=== PATIENT | male | born 1980 | race Caucasian/White ===

== ENCOUNTER 2022-09-16 20:47 | Inpatient (IN) | payer BC, OTHER ==
[2022-09-16] MEDS ORDERED: LORazepam 2 MG/ML INJ IV STA (21:52)
[2022-09-16] MEDS ORDERED: chlordiazePOXIDE 25 MG CAP PO PRN ×2 (21:52)
[2022-09-16] MEDS ORDERED: SODIUM CHLORIDE 0.9% 1,000 ML IV ONE (21:54)
[2022-09-16] MEDS ORDERED: ONDANSETRON 4 MG/2 ML VIAL IVP STA (21:55)
[2022-09-16 22:33] LABS: Basophils % (A) 1 %; Eosinophils % (A) 1 %; HCT 37.2 % (39.0-53.0); HGB 12.7 gm/dL (13.0-17.5); Lymphocytes # (A) 1.1 k/uL (1.0-4.8); Lymphocytes % (A) 21 %; MCH 30.6 pg (25.0-35.0); MCHC 34.1 g/dL (31.0-37.0); MCV 89.9 fL (80.0-100.0); Monocytes # (A) 0.4 k/uL (0-1.0); Monocytes % (A) 7 %; Neutrophils # (A) 3.6 k/uL (1.3-7.7); Neutrophils % (A) 69 %; Platelet Count 248 k/uL (150-450); RBC 4.14 m/uL (4.30-5.90); RDW 13.3 % (11.5-15.5); WBC 5.2 k/uL (3.8-10.6)
[2022-09-16 23:08] LABS: ALT 31 U/L (4-49); AST 28 U/L (17-59); African American GFR (CKD) >90 (>60 ml/min/1.73 sqM); Albumin 4.8 g/dL (3.5-5.0); Alkaline Phosphatase 60 U/L (38-126); Anion Gap 12 mmol/L; Blood Urea Nitrogen 18 mg/dL (9-20); Calcium 9.4 mg/dL (8.4-10.2); Carbon Dioxide 26 mmol/L (22-30); Chloride 101 mmol/L (98-107); Glucose 112 mg/dL (74-99); Magnesium 2.2 mg/dL (1.6-2.3); Non-African American GFR(CKD) >90 (>60 ml/min/1.73 sqM); Potassium 4.2 mmol/L (3.5-5.1); Sodium 139 mmol/L (137-145); Total Bilirubin 0.6 mg/dL (0.2-1.3); Total Protein 8.2 g/dL (6.3-8.2)
[2022-09-16] MEDS ORDERED: MIRTAZAPINE 15 MG TAB PO SCH (23:30)
[2022-09-17] MEDS ORDERED: ACETAMINOPHEN TAB 325 MG TAB PO PRN ×2 (00:09→02:27)
[2022-09-17] MEDS ORDERED: ONDANSETRON 4 MG/2 ML VIAL IVP PRN (00:09)
[2022-09-17] MEDS ORDERED: NALOXONE 0.4 MG/ML 1 ML VIAL IV PRN (00:09)
--- NOTE | 2022-09-17 00:09 | ED ---
General Adult HPI - General Chief complaint: Seizure Stated complaint: ETOH Time Seen by Provider: 09/16/22 21:40 Source: patient, EMS Mode of arrival: EMS Limitations: no limitations - History of Present Illness Initial comments: 41-year-old male with past medical history of alcohol abuse, benzodiazepine abuse who presents to the emergency department reporting visual hallucinations, tremors, nausea and vomiting. He is coming from [facility]. He admitted himself on Saturday. He is currently on a phenobarbital taper for the benzo withdrawal. States that the first and second days he did a right however today he began having an aura, shakes, nausea with vomiting. He went to the nurse stating that he felt like he was A seizure. He does have a history of seizure disorder. Also has a history of withdrawal seizures. He has not used any benzo since Saturday. He is at rehab under his own request. He has been using benzodiazepines daily for the past 20 years. Also uses alcohol and cigarettes. Patient on Suboxone. [facility] did transfer the patient to the hospital as they were concerned that he was withdrawing too hard for them to take care of - Related Data Home Medications Medication Instructions Recorded Confirmed Acetaminophen Tab [Tylenol] 650 mg PO QID PRN 09/16/22 09/16/22 Albuterol Sulfate [Ventolin HFA] 2 puff INHALATION RT-QID PRN 09/16/22 09/16/22 Buprenorphine HCl/Naloxone HCl 1 film SL BID@0615,1630 09/16/22 09/16/22 [Suboxone 8 mg-2 mg Sl Film] Calcium, Magnesium, Zinc, With 1 tab PO TID PRN 09/16/22 09/16/22 Vitamin D3 Chlorpheniramine Maleate 4 mg PO Q4H PRN 09/16/22 09/16/22 [Chlor-Trimeton] Famotidine [Pepcid] 20 mg PO BID@0615,1630 09/16/22 09/16/22 Gabapentin 600 mg PO TID@0615,1130,2100 09/16/22 09/16/22 Hyoscyamine Sulfate [Levsin] 0.125 mg PO QID PRN 09/16/22 09/16/22 Ibuprofen [Motrin Ib] 600 mg PO Q6H PRN 09/16/22 09/16/22 Loperamide HCl [Imodium A-D] 4 mg PO QID PRN 09/16/22 09/16/22 Mirtazapine [Remeron Soluspan] 45 mg PO HS 09/16/22 09/16/22 Multivitamins, Thera [Multivitamin 1 tab PO DAILY PRN 09/16/22 09/16/22 (formulary)] Omeprazole 40 mg PO BID@0615,1630 09/16/22 09/16/22 Thiamine [Vitamin B-1] 100 mg PO DAILY PRN 09/16/22 09/16/22 levETIRAcetam [Keppra] 1,000 mg PO TID@0615,1200,1800 09/16/22 09/16/22 ondansetron HCL [Zofran] 8 mg PO Q6H PRN 09/16/22 09/16/22 Previous Rx's Medication Instructions Recorded Folic Acid 1 mg PO DAILY #14 tab 09/19/22 Allergies Allergy/AdvReac Type Severity Reaction Status Date / Time haloperidol [From Haldol] Allergy Unknown Verified 09/16/22 22:04 Penicillins Allergy Unknown Verified 09/16/22 22:04 Review of Systems ROS Statement: Those systems with pertinent positive or pertinent negative responses have been documented in the HPI. ROS Other: All systems not noted in ROS Statement are negative. 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 Absent: scleral icterus, conjunctival injection, periorbital swelling ENT exam: Present: mucous membranes dry Neck exam: Present: normal inspection. Absent: tenderness, meningismus, lymphadenopathy Respiratory exam: Present: normal lung sounds bilaterally. Absent: respiratory distress, wheezes, rales, rhonchi, stridor Cardiovascular Exam: Present: regular rate, normal rhythm, normal heart sounds. Absent: systolic murmur, diastolic murmur, rubs, gallop, clicks GI/Abdominal exam: Present: soft, normal bowel sounds. Absent: distended, tenderness, guarding, rebound, rigid Neurological exam: Present: alert Psychiatric exam: Present: anxious, flat affect Skin exam: Present: warm, dry, intact, normal color. Absent: rash Course Vital Signs 09/16/22 09/16/22 09/17/22 20:54 23:23 00:58 Temperature 98.5 F Pulse Rate 68 70 Respiratory 18 19 16 Rate Blood Pressure 122/86 104/82 O2 Sat by Pulse 96 98 Oximetry EKG Findings - EKG Comments: EKG Findings:: EKG demonstrates sinus rhythm with a rate of 61. IN interval 170. QRS 95. QTC 382. No acute ST segment elevations or depressions Medical Decision Making - Medical Decision Making Was pt. sent in by a medical professional or institution (, PA, AGRICULTURE DEPARTMENT CHAIR, urgent care, hospital, or fpc...) When possible be specific @ -[facility] Did you speak to anyone other than the patient for history (EMS, parent, family, police, friend...)? What history was obtained from this source @ -ems Did you review nursing and triage notes (agree or disagree)? Why? @ -I reviewed and agree with nursing and triage notes Were old charts reviewed (outside hosp., previous admission, EMS record, old EKG, old radiological studies, urgent care reports/EKG's, fpc records)? Report findings @ -paperwork from [facility] reviewed - med list, demographics Differential Diagnosis (chest pain, altered mental status, abdominal pain women, abdominal pain men, vaginal bleeding, weakness, fever, dyspnea, syncope, headache, dizziness, GI bleed, back pain, seizure, CVA, palpatations, mental health, musculoskeletal)? @ -alcohol withdrawal, alcohol withdrawal seizure, benzo withdrawal, acute psychosis EKG interpreted by me (3pts min.). @ -yes X-rays interpreted by me (1pt min.). @ -None done CT interpreted by me (1pt min.). @ -None done U/S interpreted by me (1pt. min.). @ -None done What testing was considered but not performed or refused? (CT, X-rays, U/S, labs)? Why? @ -None What meds were considered but not given or refused? Why? @ -None Did you discuss the management of the patient with other professionals (professionals i.e. DrElizabeth, PA, AGRICULTURE DEPARTMENT CHAIR, lab, RT, psych nurse, social and human services assistant, telehealth case manager, teacher, attendance officer, case assistant)? Give summary @ -Dr. Diaz who will admit the patient Was smoking cessation discussed for >3mins.? @ -yes Was critical care preformed (if so, how long)? @ -No Were there social determinants of health that impacted care today? How? (Homelessness, low income, unemployed, alcoholism, drug addiction, transportation, low edu. Level, literacy, decrease access to med. care, residential, rehab)? @ -patient actively at rehab - stating the rehab is not treating his withdrawal symptoms well enough Was there de-escalation of care discussed even if they declined (Discuss DNR or withdrawal of care, Hospice)? DNR status @ -No What co-morbidities impacted this encounter? (DM, HTN, Smoking, COPD, CAD, Cancer, CVA, ARF, Chemo, Hep., AIDS, mental health diagnosis, sleep apnea, morbid obesity)? @ -alcohol and benzo use Was patient admitted / discharged? Hospital course, mention meds given and route, prescriptions, significant lab abnormalities, going to OR and other pertinent info. @ -Upon arrival patient is placed into room 24. There are history of physical exam is performed. IV access is established. Laboratory studies were conduct ed. Patient was given 2 mg of IV Ativan for his withdrawal symptoms. He is placed on a Librium protocol. Patient will be admitted. Spoke with Dr. Diaz who agreed to admit the patient. Undiagnosed new problem with uncertain prognosis? @ -yes Drug Therapy requiring intensive monitoring for toxicity (Heparin, Nitro, Insulin, Cardizem)? @ -No Were any procedures done? @ -No Diagnosis/symptom? @ -acute benzo/alcohol withdrawal, auditory hallucinations Acute, or Chronic, or Acute on Chronic? @ -acute Uncomplicated (without systemic symptoms) or Complicated (systemic symptoms)? @ -complicated Side effects of treatment? @ -No Exacerbation, Progression, or Severe Exacerbation? @ -No Poses a threat to life or bodily function? How? (Chest pain, USA, OR, pneumonia, PE, COPD, DKA, ARF, appy, cholecystitis, CVA, Diverticulitis, Homicidal, Suicidal, threat to staff... and all critical care pts) @ -yes - Lab Data Result diagrams: 09/18/22 05:27 09/18/22 05:27 Lab Results 09/16/22 09/16/22 09/16/22 Range/Units 22:00 22:00 22:00 WBC 5.2 (3.8-10.6) k/uL RBC 4.14 L (4.30-5.90) m/uL Hgb 12.7 L (13.0-17.5) gm/dL Hct 37.2 L (39.0-53.0) % MCV 89.9 (80.0-100.0) fL MCH 30.6 (25.0-35.0) pg MCHC 34.1 (31.0-37.0) g/dL RDW 13.3 (11.5-15.5) % Plt Count 248 (150-450) k/uL MPV 7.0 Neutrophils % 69 % Lymphocytes % 21 % Monocytes % 7 % Eosinophils % 1 % Basophils % 1 % Neutrophils # 3.6 (1.3-7.7) k/uL Lymphocytes # 1.1 (1.0-4.8) k/uL Monocytes # 0.4 (0-1.0) k/uL Eosinophils # 0.0 (0-0.7) k/uL Basophils # 0.0 (0-0.2) k/uL Sodium 139 (137-145) mmol/L Potassium 4.2 (3.5-5.1) mmol/L Chloride 101 (98-107) mmol/L Carbon Dioxide 26 (22-30) mmol/L Anion Gap 12 mmol/L BUN 18 (9-20) mg/dL Creatinine 0.58 L (0.66-1.25) mg/dL Est GFR (CKD-EPI)AfAm >90 (>60 ml/min/1.73 sqM) Est GFR (CKD-EPI)NonAf >90 (>60 ml/min/1.73 sqM) Glucose 112 H (74-99) mg/dL Plasma Lactic Acid Brannon 1.1 (0.7-2.0) mmol/L Calcium 9.4 (8.4-10.2) mg/dL Magnesium 2.2 (1.6-2.3) mg/dL Total Bilirubin 0.6 (0.2-1.3) mg/dL AST 28 (17-59) U/L ALT 31 (4-49) U/L Alkaline Phosphatase 60 (38-126) U/L Total Protein 8.2 (6.3-8.2) g/dL Albumin 4.8 (3.5-5.0) g/dL Disposition Clinical Impression: Tremors of nervous system, Benzodiazepine withdrawal, Alcohol withdrawal, Auditory hallucinations Disposition: ADMITTED IP TO THIS [facility] Condition: Good Is patient prescribed a controlled substance at d/c from ED?: No Time of Disposition: 00:08 Decision to Admit Reason: Admit from EC Decision Date: 09/17/22 Decision Time: 00:09
[2022-09-17] MEDS: SODIUM CHLORIDE 0.9% 1,000 ML IV SCH ×4 (00:17→23:16)
--- NOTE | 2022-09-17 02:39 | P.HPIM ---
History of Present Illness H&P Date: 09/17/22 Chief Complaint: withdrawal symptoms 41 year old male with seizure history , and addiction patient coming in from [facility], where he was being treated for bezo and alcohol withdrawal, he abuses both, and committed himself to detox since saturday, however, today he was reporting hallucinations, and was having rapid heart rate and elevated blood pressure, for which he was receiving phenobarb, but due to poor control of his symptoms , [facility] decided to send him in here he is feeling better now, denies any suicidal thoughts, hallucinations, chest pain , headache, trouble breathing, denies any abd pain , or GI bleeding he has history of seizure disorder, with last breakthrough seizure in Jun 2022 due to non compliance with his meds. he admits to tobacco smoking and polysubstance abuse (benzo and alcohol) Review of Systems Pertinent positives as noted in HPI. 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 History of Any Multi-Drug Resistant Organisms: None Reported Past Surgical History: No Surgical Hx Reported Past Psychological History: Anxiety, Depression Smoking Status: Current every day smoker Past Alcohol Use History: Abuse Past Drug Use History: None Reported Occupational Seizure History - Commerical Driving History Currently uses [employer] for employment (including self-employed).: No What is your current occupation?: unemployed Medications and Allergies Home Medications Medication Instructions Recorded Confirmed Type Acetaminophen Tab [Tylenol] 650 mg PO QID PRN 09/16/22 09/16/22 History Albuterol Sulfate [Ventolin HFA] 2 puff INHALATION RT-QID PRN 09/16/22 09/16/22 History Buprenorphine HCl/Naloxone HCl 1 film SL BID@0615,1630 09/16/22 09/16/22 History [Suboxone 8 mg-2 mg Sl Film] Calcium, Magnesium, Zinc, With 1 tab PO TID PRN 09/16/22 09/16/22 History Vitamin D3 Chlorpheniramine Maleate 4 mg PO Q4H PRN 09/16/22 09/16/22 History [Chlor-Trimeton] Famotidine [Pepcid] 20 mg PO BID@0615,1630 09/16/22 09/16/22 History Gabapentin 600 mg PO TID@0615,1130,2100 09/16/22 09/16/22 History Hyoscyamine Sulfate [Levsin] 0.125 mg PO QID PRN 09/16/22 09/16/22 History Ibuprofen [Motrin Ib] 600 mg PO Q6H PRN 09/16/22 09/16/22 History Loperamide HCl [Imodium A-D] 4 mg PO QID PRN 09/16/22 09/16/22 History Mirtazapine [Remeron Soluspan] 45 mg PO HS 09/16/22 09/16/22 History Multivitamins, Thera [Multivitamin 1 tab PO DAILY PRN 09/16/22 09/16/22 History (formulary)] Omeprazole 40 mg PO BID@0615,1630 09/16/22 09/16/22 History PHENobarbitaL [Luminal] 32.4 - 64.8 mg PO DIRECTED 09/16/22 09/16/22 History Thiamine [Vitamin B-1] 100 mg PO DAILY PRN 09/16/22 09/16/22 History levETIRAcetam [Keppra] 1,000 mg PO TID@0615,1200,1800 09/16/22 09/16/22 History ondansetron HCL [Zofran] 8 mg PO Q6H PRN 09/16/22 09/16/22 History Allergies Allergy/AdvReac Type Severity Reaction Status Date / Time haloperidol [From Haldol] Allergy Unknown Verified 09/16/22 22:04 Penicillins Allergy Unknown Verified 09/16/22 22:04 Physical Exam Vitals: Vital Signs Temp Pulse Pulse Resp BP BP Pulse Ox 09/17/22 01:43 76 18 09/17/22 01:32 97.8 F 76 18 125/84 99 09/17/22 00:58 16 09/16/22 23:23 70 19 104/82 98 09/16/22 20:54 98.5 F 68 18 122/86 96 Intake and Output 09/16/22 09/16/22 09/17/22 14:59 22:59 06:59 Other: Voiding Method Toilet Urinal Weight 81.647 kg 81.647 kg Constitutional: No acute distress, Eyes: Anicteric sclerae, moist conjunctiva, Pupils equal round reactive to light ENMT: NC/AT Oropharynx clear, no erythema, or exudates Neck: Supple, no masses, or JVD No carotid bruits No thyromegaly Lungs: Clear to auscultation Clear to percussion Normal respiratory effort, no accessory muscle use Cardiovascular: Heart regular in rate and rhythm, No murmurs, gallops, or rubs No peripheral edema Abdominal: Soft No tenderness to deep palpation no guarding, rebound or rigidity Abdomen moving with respiration Normoactive bowel sounds No hepatomegaly, No splenomegaly No palpable mass No abdominal wall hernia noted Skin: Normal temperature, tone, texture, turgor Extremities: No digital cyanosis No clubbing Pedal pulses intact and symmetrical Radial pulses intact and symmetrical No calf tenderness Psychiatric: Alert and oriented to person, place and time Neuro Muscles Strength 5/5 in all 4 extremities Sensation to light touch grossly present throughout Cranial nerves II-XII grossly intact Lymphatics: no palpable cervical or supraclavicular lymph nodes Results CBC & Chem 7: 09/16/22 22:00 09/16/22 22:00 Labs: Abnormal Lab Results - Last 24 Hours (Table) 09/16/22 09/16/22 Range/Units 22:00 22:00 RBC 4.14 L (4.30-5.90) m/uL Hgb 12.7 L (13.0-17.5) gm/dL Hct 37.2 L (39.0-53.0) % Creatinine 0.58 L (0.66-1.25) mg/dL Glucose 112 H (74-99) mg/dL Thrombosis Risk Factor Assmnt - Choose All That Apply Any of the Below Risk Factors Present?: No Other Risk Factors: No Thrombosis Risk Factor Assessment Level: Very Low Risk Assessment and Plan Assessment: 41 year old male with polysubstance abuse, he was sent in here from [facility] rehab due to poorly controlled alcohol and benzo withdrawal symptoms , I discussed the case with ED doc and I accepted the admission for control of his withdrawal symptoms with anticipated length of stay > 2 midnights benzo and alcohol withdrawal syndrome benzo per CIWA thiamine IVF hydration with normal saline 130 cc per hour seizure precautions monitor vital signs h/o seizure , with non compliance with meds keppra 1000 mg bid po seizure precautions blood work reviewed BUn 18 cr 0.58 unreamrkable liver enzymes unremarkable LA 1.1, Bili 0.6, AST 28, ALT 31 full code DVT PPX lovenox 40 mg sc daily GI PPX protonix 40 mg po daily
[2022-09-17] MEDS: chlordiazePOXIDE 25 MG CAP PO PRN ×5 (03:32→20:23)
[2022-09-17] MEDS: FAMOTIDINE 20 MG TAB PO SCH ×2 (06:09→16:51)
[2022-09-17] MEDS: levETIRAcetam 500 MG TAB PO SCH ×3 (06:09→17:06)
[2022-09-17] MEDS: GABAPENTIN 300 MG CAP PO SCH ×3 (06:09→20:23)
[2022-09-17] MEDS: PANTOPRAZOLE 40 MG TABLET PO SCH ×2 (06:09→16:51)
[2022-09-17] MEDS: ENOXAPARIN 40 MG/0.4 ML SYRINGE SQ SCH (08:13)
[2022-09-17] MEDS ORDERED: THIAMINE 100 MG TAB PO PRN (09:00)
[2022-09-17] MEDS ORDERED: NON FORMULARY DRUG (Buprenorphine Hcl/Naloxone Hcl [Suboxone 8 Mg-2 Mg Sl Film] 1 EACH Fil SUBLINGUAL SCH (16:30)
[2022-09-17] MEDS: BUPRENORPHINE-NALOX 8-2 MG TAB 1 EACH TAB.SUBL SL SCH (16:51)
[2022-09-17] MEDS: IBUPROFEN 400 MG TAB PO PRN (17:06)
[2022-09-17] MEDS ORDERED: HYOSCYAMINE SULFATE 0.125 MG TAB PO PRN (17:14)
--- NOTE | 2022-09-17 17:24 | P.PN ---
Subjective Progress Note Date: 09/17/22 Hospital course: Patient is a pleasant 41-year-old male with a past medical history of seizure disorder, anxiety, depression, nicotine dependence, alcohol abuse and substance abuse disorder on Suboxone. Patient presented to the hospital overnight secondary to complicated with drop. Patient was at [facility] undergoing detox from benzodiazepines and alcohol withdrawal. Patient had been admitted there since 09/14/22. However, overnight patient began to develop tachycardia, hypertension, and visual hallucinations and was sent by [facility] staff to emergency department for admission for closer monitoring secondary to complicated withdrawal. Patient underwent full evaluation in the emergency department. CBC showing normocytic anemia with hemoglobin stable at 12.7. CMP was unremarkable. EKG was completed showing normal sinus rhythm at 61 bpm with no significant T-wave or ST abnormalities showing no signs of acute ischemia. Patient admitted under our services at this time. Physical exam: Vital signs reviewed and stable. General: Nontoxic, no distress and appears stated age. Derm: Skin warm and dry, normal coloration for ethnicity. Head: Atraumatic, normocephalic and symmetric. Eyes: EOMs intact, no lid lag, and anicteric sclera Mouth: no lip lesions, mucus membranes moist Cardiovascular: regular rate and rhythm with normal S1S2, no murmur, positive posterior tibial pulses bilaterally, and cap refill < 2 seconds. Lungs: Respirations even, regular, and unlabored on room air. Lungs CTA bilaterally, no rhonchi, no rales, no wheezing, and no accessory muscle usage. Abdominal: soft, nontender to palpation, no guarding, no appreciable orga nomegaly Ext: ROM intact. No gross muscle atrophy, no edema, no contractures Neuro: Speech clear, face symmetrical and CN II-XII grossly intact with no noted focal neuro deficits. No tremors noted. Psych: Alert and oriented to person, place, time, and situation. Appropriate and pleasant affect. patient does report having visual and auditory hallucinations. Assessment and Plan of Care: Acute alcohol withdrawal with delirium Benzodiazepine withdraw Hallucinations History of seizure disorder Polysubstance abuse Anxiety and depression Nicotine dependence -Continue CIWA protocol with symptom triggered medication management with Librium. -Continue Suboxone to prevent further withdrawal -Continue seizure and fall precautions. -Order placed for nicotine patch. -Continue with IV fluid hydration with 0.9% normal saline at 130 mL per hour. CODE STATUS: Full code DVT prophylaxis: Lovenox Discussed with: patient and RN Anticipated discharge date: clinical course to determine Anticipated discharge place: return to [facility] Patient was seen independently by Nurse Pracitioner. This document was prepared using [employer] dictation software. Please allow for errors in crew car driver, while rare they do occur. complications Objective - Vital Signs Vital signs: Vital Signs Temp 97.8 F 09/17/22 07:25 Pulse 71 09/17/22 07:25 Resp 17 09/17/22 07:25 BP 95/57 09/17/22 07:25 Pulse Ox 98 09/17/22 07:25 FiO2 Intake & Output 09/16/22 09/17/22 09/17/22 18:59 06:59 18:59 Intake Total 240 Output Total 500 Balance -260 Weight 81.647 kg Intake: Oral 240 Output: Urine 500 Other: Voiding Method Toilet Urinal - Labs CBC & Chem 7: 09/16/22 22:00 09/16/22 22:00 Labs: Abnormal Lab Results - Last 24 Hours (Table) 09/16/22 09/16/22 Range/Units 22:00 22:00 RBC 4.14 L (4.30-5.90) m/uL Hgb 12.7 L (13.0-17.5) gm/dL Hct 37.2 L (39.0-53.0) % Creatinine 0.58 L (0.66-1.25) mg/dL Glucose 112 H (74-99) mg/dL
[2022-09-17] MEDS: NICOTINE 21MG/24HR PATCH TRANSDERM SCH (17:34)
[2022-09-17] MEDS: MIRTAZAPINE 45 MG TABLET PO SCH (20:23)
[2022-09-18] MEDS: chlordiazePOXIDE 25 MG CAP PO PRN ×5 (02:08→20:23)
[2022-09-18] MEDS: PANTOPRAZOLE 40 MG TABLET PO SCH ×2 (06:24→16:16)
[2022-09-18] MEDS: levETIRAcetam 500 MG TAB PO SCH ×3 (06:25→17:31)
[2022-09-18] MEDS: FAMOTIDINE 20 MG TAB PO SCH ×2 (06:25→16:16)
[2022-09-18] MEDS: GABAPENTIN 300 MG CAP PO SCH ×3 (06:25→20:23)
[2022-09-18] MEDS: BUPRENORPHINE-NALOX 8-2 MG TAB 1 EACH TAB.SUBL SL SCH ×2 (06:26→16:16)
[2022-09-18] MEDS: SODIUM CHLORIDE 0.9% 1,000 ML IV SCH ×3 (06:28→21:24)
[2022-09-18 07:38] VITALS: RESP 18
[2022-09-18] MEDS: ENOXAPARIN 40 MG/0.4 ML SYRINGE SQ SCH (07:38)
[2022-09-18] MEDS: NICOTINE 21MG/24HR PATCH TRANSDERM SCH (07:39)
[2022-09-18 09:05] LABS: Basophils # (A) 0.03 X 10*3/uL (0.00-0.10); Basophils % (A) 0.7 %; Eosinophils % (A) 2.5 %; HCT 34.1 % (39.6-50.0); HGB 11.2 g/dL (13.0-17.0); Immature Grans, Automated 0.2 %; Lymphocytes # (A) 1.81 X 10*3/uL (0.90-5.00); MCH 30.8 pg (27.0-32.0); MCHC 32.8 g/dL (32.0-37.0); MCV 93.7 fL (80.0-97.0); Mean Platelet Volume 9.5 fL (9.5-12.2); Monocytes # (A) 0.28 X 10*3/uL (0.20-1.00); NRBC Per 100 WBC 0 /100 WBCS (0.0-0.0); Neutrophils # (A) 1.79 X 10*3/uL (1.80-7.70); Neutrophils % (A) 44.6 %; Platelet Count 199 X 10*3/uL (140-440); RBC 3.64 X 10*6/uL (4.40-5.60); RDW 12.8 % (11.5-14.5); WBC 4.02 X 10*3/uL (4.50-10.00)
[2022-09-18 09:53] LABS: African American GFR (CKD) 137.8 (60.0-200.0); Anion Gap 12.1 mmol/L (10.00-18.00); BUN/Creat Ratio 15.86 Ratio (12.00-20.00); Blood Urea Nitrogen 11.1 mg/dL (9.0-27.0); Calcium 8.5 mg/dL (8.7-10.3); Carbon Dioxide 20.9 mmol/L (20.0-27.5); Non-African American GFR(CKD) 118.9 (60.0-200.0); Potassium 3.7 mmol/L (3.5-5.5)
--- NOTE | 2022-09-18 14:17 | P.PN ---
Subjective Progress Note Date: 09/18/22 Patient continues to report withdrawal symptoms including visual hallucinations, tremors, anxiety. Gen: awake, alert HEENT: normocephalic, atraumatic, good hearing acuity, moist mucous membranes Resp: good air exchange, breathing comfortably with no accessory muscle use CVS: good distal perfusion x 4, GI: soft, NTTP, ND : no SPT, no CVAT, langford catheter not present MSK: no pitting edema, no clubbing Neuro: non-focal, moving all extremities Psych: cooperative, euthymic mood Hospital course: Patient is a pleasant 41-year-old male with a past medical history of seizure disorder, anxiety, depression, nicotine dependence, alcohol abuse and substance abuse disorder on Suboxone. Patient presented to the hospital overnight secondary to complicated with drop. Patient was at [facility] undergoing detox from benzodiazepines and alcohol withdrawal. Patient had been admitted there since 09/14/22. However, overnight patient began to develop tachycardia, hypertension, and visual hallucinations and was sent by [facility] staff to emergency department for admission for closer monitoring secondary to complicated withdrawal. Patient underwent full evaluation in the emergency department. CBC showing normocytic anemia with hemoglobin stable at 12.7. CMP was unremarkable. EKG was completed showing normal sinus rhythm at 61 bpm with no significant T-wave or ST abnormalities showing no signs of acute ischemia. Patient admitted under our services at this time. Assessment: Acute alcohol withdrawal with delirium Benzodiazepine withdraw Hallucinations History of seizure disorder Polysubstance abuse Anxiety and depression Nicotine dependence Plan: Today, patient is afebrile, 123/77, heart rate 67, 94% on room air. CBC demonstrates anemia down to 11.2, otherwise unremarkable. Chemistries are unremarkable. Continue Suboxone Continue Librium when necessary, dosed per CIWA protocol continue thiamine 100 mg daily, and folic acid 1 mg daily, one multivitamin daily Patient is full code. Objective - Vital Signs Vital signs: Vital Signs Temp 97.5 F L 09/18/22 11:44 Pulse 67 09/18/22 11:44 Resp 18 09/18/22 11:44 BP 123/77 09/18/22 11:44 Pulse Ox 94 L 09/18/22 11:44 FiO2 Intake & Output 09/17/22 09/18/22 09/18/22 18:59 06:59 18:59 Intake Total 2240 Output Total 2250 800 1200 Balance -2250 1440 -1200 Intake: Intake, IV Titration 1500 Amount Sodium Chloride 0.9% 1, 1500 000 ml @ 130 mls/hr IV . Q7H42M [facility] Rx#:[id number] Oral 740 Output: Urine 2250 800 1200 Other: Voiding Method Toilet Toilet Urinal Urinal # Voids 1 3 # Bowel Movements 1 - Labs CBC & Chem 7: 09/18/22 05:27 09/18/22 05:27 Labs: Abnormal Lab Results - Last 24 Hours (Table) 09/18/22 09/18/22 Range/Units 05:27 05:27 WBC 4.02 L (4.50-10.00) X 10*3/uL RBC 3.64 L (4.40-5.60) X 10*6/uL Hgb 11.2 L (13.0-17.0) g/dL Hct 34.1 L (39.6-50.0) % Neutrophils # 1.79 L (1.80-7.70) X 10*3/uL Chloride 110 H (96-109) mmol/L Calcium 8.5 L (8.7-10.3) mg/dL
[2022-09-18] MEDS: FOLIC ACID 1 MG TAB PO SCH (16:16)
[2022-09-18] MEDS: MULTIVITAMINS, THERA 1 EACH TAB PO SCH (16:16)
[2022-09-18] MEDS: IBUPROFEN 400 MG TAB PO PRN (17:31)
[2022-09-18] MEDS: MIRTAZAPINE 45 MG TABLET PO SCH (20:23)
[2022-09-19] MEDS: chlordiazePOXIDE 25 MG CAP PO PRN ×4 (01:58→14:29)
[2022-09-19 02:02] VITALS: TEMP 97.8
[2022-09-19] MEDS: SODIUM CHLORIDE 0.9% 1,000 ML IV SCH (05:07)
[2022-09-19] MEDS: FAMOTIDINE 20 MG TAB PO SCH (05:53)
[2022-09-19] MEDS: levETIRAcetam 500 MG TAB PO SCH ×2 (05:53→11:22)
[2022-09-19] MEDS: GABAPENTIN 300 MG CAP PO SCH ×2 (05:53→11:22)
[2022-09-19] MEDS: PANTOPRAZOLE 40 MG TABLET PO SCH (05:53)
[2022-09-19] MEDS: BUPRENORPHINE-NALOX 8-2 MG TAB 1 EACH TAB.SUBL SL SCH (05:54)
[2022-09-19 07:45] VITALS: BP 136/83; PULSE 62
[2022-09-19] MEDS: NICOTINE 21MG/24HR PATCH TRANSDERM SCH (08:44)
[2022-09-19] MEDS: FOLIC ACID 1 MG TAB PO SCH (08:44)
[2022-09-19] MEDS: ENOXAPARIN 40 MG/0.4 ML SYRINGE SQ SCH (08:44)
[2022-09-19] MEDS: MULTIVITAMINS, THERA 1 EACH TAB PO SCH (08:44)
--- NOTE | 2022-09-19 10:41 | P.DS ---
Providers Date of admission: 09/17/22 00:09 Expected date of discharge: 09/19/22 Attending physician: Danny Diaz MD Primary care physician: Physician Nonstaff Hospital Course: Assessment: Acute alcohol withdrawal with delirium Benzodiazepine withdraw Hallucinations History of seizure disorder Polysubstance abuse Anxiety and depression Nicotine dependence Hospital course: Patient is a pleasant 41-year-old male with a past medical history of seizure disorder, anxiety, depression, nicotine dependence, alcohol abuse and substance abuse disorder on Suboxone. Patient presented to the hospital overnight secondary to complicated with drop. Patient was at [facility] undergoing detox from benzodiazepines and alcohol withdrawal. Patient had been admitted there since 09/14/22. However, overnight patient began to develop tachycardia, hypertension, and visual hallucinations and was sent by [facility] staff to emergency department for admission for closer monitoring secondary to complicated withdrawal. Patient underwent full evaluation in the emergency department. CBC showing normocytic anemia with hemoglobin stable at 12.7. CMP was unremarkable. EKG was completed showing normal sinus rhythm at 61 bpm with no significant T-wave or ST abnormalities showing no signs of acute ischemia. Patient admitted under our services at this time. Patient was treated with Librium, gabapentin for alcohol withdrawal, by 48 hours of admission was no longer exhibiting signs of alcohol withdrawal. He was subsequently discharged with instructions to follow-up with [facility] for rehab. We discussed the use of Antabuse, however, patient deferred at this time due to previously not be able tolerate this medication. I spent 34 minutes coordinating this discharge on 09/19 Gen: awake, alert HEENT: normocephalic, atraumatic, good hearing acuity, moist mucous membranes Resp: good air exchange, breathing comfortably with no accessory muscle use CVS: good distal perfusion x 4, GI: soft, NTTP, ND : no SPT, no CVAT, langford catheter not present MSK: no pitting edema, no clubbing Neuro: non-focal, moving all extremities Psych: cooperative, euthymic mood Patient Condition at Discharge: Good Plan - Discharge Summary Discharge Rx Participant: No New Discharge Prescriptions: New Folic Acid 1 mg PO DAILY #14 tab Continue ondansetron HCL [Zofran] 8 mg PO Q6H PRN PRN Reason: Nausea Thiamine [Vitamin B-1] 100 mg PO DAILY PRN PRN Reason: supplement Omeprazole 40 mg PO BID@0615,1630 Mirtazapine [Remeron Soluspan] 45 mg PO HS Ibuprofen [Motrin Ib] 600 mg PO Q6H PRN PRN Reason: Pain Or Fever > 100.5 Hyoscyamine Sulfate [Levsin] 0.125 mg PO QID PRN PRN Reason: Secretions/cramps Gabapentin 600 mg PO TID@0615,1130,2100 Multivitamins, Thera [Multivitamin (formulary)] 1 tab PO DAILY PRN PRN Reason: supplement Albuterol Sulfate [Ventolin HFA] 2 puff INHALATION RT-QID PRN PRN Reason: Shortness Of Breath Acetaminophen Tab [Tylenol] 650 mg PO QID PRN PRN Reason: Pain Or Fever > 100.5 Buprenorphine HCl/Naloxone HCl [Suboxone 8 mg-2 mg Sl Film] 1 film SL BID@0615,1630 levETIRAcetam [Keppra] 1,000 mg PO TID@0615,1200,1800 Loperamide HCl [Imodium A-D] 4 mg PO QID PRN PRN Reason: Diarrhea Famotidine [Pepcid] 20 mg PO BID@0615,1630 Chlorpheniramine Maleate [Chlor-Trimeton] 4 mg PO Q4H PRN PRN Reason: Allergy/withdrawl Symptoms Calcium, Magnesium, Zinc, With Vitamin D3 1 tab PO TID PRN PRN Reason: SUPPLEMENT Discontinued PHENobarbitaL [Luminal] 32.4 - 64.8 mg PO DIRECTED Discharge Medication List Acetaminophen Tab [Tylenol] 650 mg PO QID PRN 09/16/22 [History] Albuterol Sulfate [Ventolin HFA] 2 puff INHALATION RT-QID PRN 09/16/22 [History] Buprenorphine HCl/Naloxone HCl [Suboxone 8 mg-2 mg Sl Film] 1 film SL BID@0615,1630 09/16/22 [History] Calcium, Magnesium, Zinc, With Vitamin D3 1 tab PO TID PRN 09/16/22 [History] Chlorpheniramine Maleate [Chlor-Trimeton] 4 mg PO Q4H PRN 09/16/22 [History] Famotidine [Pepcid] 20 mg PO BID@0615,1630 09/16/22 [History] Gabapentin 600 mg PO TID@0615,1130,209909/16/22 [History] Hyoscyamine Sulfate [Levsin] 0.125 mg PO QID PRN 09/16/22 [History] Ibuprofen [Motrin Ib] 600 mg PO Q6H PRN 09/16/22 [History] Loperamide HCl [Imodium A-D] 4 mg PO QID PRN 09/16/22 [History] Mirtazapine [Remeron Soluspan] 45 mg PO HS 09/16/22 [History] Multivitamins, Thera [Multivitamin (formulary)] 1 tab PO DAILY PRN 09/16/22 [History] Omeprazole 40 mg PO BID@0615,1630 09/16/22 [History] Thiamine [Vitamin B-1] 100 mg PO DAILY PRN 09/16/22 [History] levETIRAcetam [Keppra] 1,000 mg PO TID@0615,1200,1800 09/16/22 [History] ondansetron HCL [Zofran] 8 mg PO Q6H PRN 09/16/22 [History] Folic Acid 1 mg PO DAILY #14 tab 09/19/22 [Rx] Follow up Appointment(s)/Referral(s): Nonstaff,Physician [Primary Care Provider] - 1-2 days Patient Instructions/Handouts: Benzodiazepine Abuse (DC), Alcohol Withdrawal (DC) Discharge/Stand Alone Forms: AA Meetings [facility], Who Do I Call?, Community Resources, Outpatient Counseling Discharge Disposition: OTHER INSTITUTION NOT DEFINED
--- NOTE | 2022-09-19 13:29 | CDI ---
Documentation Clarification Form Date: 09/19/2022 1:15:00 PM From: Melissa Salgado RN CCDS Phone: [phone] Admit Date: 09/17/2022 12:09:00 AM Patient Name: Liane Villanueva Visit Number: [id number] Discharge Date: ATTENTION: The Clinical Documentation Specialists (CDI) and [facility] Coding Staff appreciate your assistance in clarifying documentation. Please respond to the clarification below the line at the bottom and electronically sign. The CDI & [facility] Coding staff will review the response and follow-up if needed. Please note: Queries are made part of the Legal Health Record. If you have any questions, please contact the author of this message via ITS. Dr. Samanta Ernst Hallucinations are documented 09/17, H&P. Additional clarification regarding the hallucinations is requested. History/Risk Factors: 41 year old male presented with visual hallucinations, tremors nausea and vomiting. The patient admitted himself to [facility] for withdrawal of benzodiazepine and alcohol. Medical History: Alcohol abuse, benzodiazepine abuse, seizures with withdrawal and anxiety. 09/17, Ed note. Clinical Indicators: 09/17, ED note: presented to the ED with visual hallucinations, tremors, nausea and vomiting from [facility]. Was on a phenobarbital taper for the benzo withdrawal. Treatment: 09/16 Ativan IV x 1, 0.9NS 1L IV bolus x 1, Zofran IV x 1; Librium PO PRN per [facility] protocol; 09/17 Suboxone 8-2mg SL BID ZHANNA, Neuro checks and safety precautions. Please clarify the type of encephalopathy, if known: [x] Toxic Encephalopathy [ ] Other, please specify [ ] Unable to determine (Template Last Revised: July 2020) MTDD
== END 2022-09-19 14:49 | disposition other institution (70) | DRG 775 ==
LOC: EC 20:47 → 5NMEDONC 09-17 00:09
PROVIDERS: ADMIT Internal Medicine; ATTEND Internal Medicine
DX: F10.231 Alcohol dependence with withdrawal delirium (principal); F13.232 Sedative, hypnotic or anxiolytic dependence with withdrawal with perceptual disturbance; G92.8 Other toxic encephalopathy; G40.909 Epilepsy, unspecified, not intractable, without status epilepticus; F41.9 Anxiety disorder, unspecified; F32.A Depression, unspecified; F17.210 Nicotine dependence, cigarettes, uncomplicated; I10 Essential (primary) hypertension; D64.9 Anemia, unspecified; Z88.0 Allergy status to penicillin; Z88.8 Allergy status to other drugs, medicaments and biological substances; Z79.899 Other long term (current) drug therapy; Z91.148 Patient's other noncompliance with medication regimen for other reason; Z28.310 Unvaccinated for COVID-19; Z56.0 Unemployment, unspecified
CPT/HCPCS: 36415; 80048; 80053; 83605; 83735; 85025; 93005; 96361; 96374; 96375; 99285